=== PATIENT | female | born 1945 | race Caucasian/White ===

== ENCOUNTER 2017-10-23 21:11 | Inpatient (IN) | payer MEDICARE, MEDICAID ==
--- NOTE | 2017-10-23 21:51 | ED Physician Chart ---
ED Chief Complaint/HPI - Patient Information Date Seen:: 10/23/17 Time Seen:: 21:30 Chief Complaint:: anxiety History of Present Illness:: The patient was sent here from her senior living facility for increased anxiety. She apparently has a fear of dying as she repeatedly said she did not want to . Allergies:: Allergies Allergy/AdvReac Type Severity Reaction Status Date / Time amitriptyline Allergy Verified 10/23/17 21:45 Historian:: Patient, EMS Review:: Transfer documents Reviewed ED Review of Systems - Review of Systems General/Constitutional: No fever, No chills Skin: No skin lesions Head: No headache Eyes: No loss of vision ENT: No earache Neck: No neck pain, No swelling Cardio Vascular: No chest pain Pulmonary: No SOB GI: No nausea, No vomiting G/U: No dysuria Musculoskeletal: No bone or joint pain Endocrine: No polyuria Psychiatric: Prior psych history Hematopoietic: No bruising Allergic/Immuno: No urticaria Neurological: No syncope ED Past Medical History - Past Medical History Past Medical History: HTN, Other (anxiety; bipolar; schizophrenia; psychosis) Family History: Other Social History: Non Smoker (unavailable), No Alcohol Surgical History: None Medication: Reviewed Family Medical History - Family Member Mother History Unknown: Yes ED Physical Exam - Physical Examination Other Gen/Cons comments:: Mildly chronically ill-appearing; patient states they use 1981 Head: Atraumatic Eyes: Lids, conjuctiva normal, PERRL Skin: Nl inspection ENMT: External ears, nose nl, Nasal exam nl Other ENMT comments:: Poor dental hygiene with some lower teeth present and upper teeth are absent ED Labs/Radiology/EKG Results - Lab Results Comments:: Laboratory Results - last 24 hr 10/23/17 22:00 WBC 10.3 RBC 3.99 Hgb 11.7 L Hct 34.5 L D MCV 86.6 MCH 29.3 MCHC Differential 33.8 RDW 13.0 Plt Count 178 MPV 6.7 Neutrophils % 68.2 Lymphocytes % 24.9 Monocytes % 6.0 Eosinophils % 0.8 Basophils % 0.1 Laboratory Results - last 24 hr 10/23/17 10/23/17 10/23/17 21:55 22:00 22:00 WBC 10.3 RBC 3.99 Hgb 11.7 L Hct 34.5 L D MCV 86.6 MCH 29.3 MCHC Differential 33.8 RDW 13.0 Plt Count 178 MPV 6.7 Neutrophils % 68.2 Lymphocytes % 24.9 Monocytes % 6.0 Eosinophils % 0.8 Basophils % 0.1 Sodium 137 Potassium 4.0 Chloride 102 Carbon Dioxide 27.2 Anion Gap 11.8 BUN 26 H Creatinine 1.5 H Est GFR ( Amer) 44.2 Est GFR (Non-Af Amer) 36.5 BUN/Creatinine Ratio 17.3 Glucose 102 Calcium 9.6 Total Bilirubin 0.4 AST 20 ALT 14 Alkaline Phosphatase 57 Total Protein 6.7 Albumin 4.1 Globulin 2.6 Albumin/Globulin Ratio 1.6 Triglycerides 154 H Cholesterol 217 H LDL Cholesterol Direct 108 HDL Cholesterol 87 Urine Source CLEAN C Urine Color YELLOW Urine Clarity HAZY Urine pH 7.0 Ur Specific [place] <= 1.005 Urine Protein NEGATIVE Urine Glucose (UA) NEGATIVE Urine Ketones NEGATIVE Urine Blood SMALL H Urine Nitrate NEGATIVE Urine Bilirubin NEGATIVE Urine Urobilinogen 0.2 Ur Leukocyte Esterase SMALL H Urine RBC 0-2 Urine WBC 6-10 H Ur Epithelial Cells OCCASIONAL Urine Bacteria FEW - EKG Interpretations Rate & Rhythm: normal sinus rhythm with a rate of 73 Prather: normal Comments:: Low voltage in the extremity leads ED Septic Shock - . Is Septic Shock (SBP<90, OR Lactate>4 mmol\L) present?: No ED Reassessment (Disposition) - Diagnosis Diagnosis:: Anxiety; depression; bipolar disorder; schizophrenia - Patient Disposition Admitted to:: [facility] Admitting Medical Physician:: Erickson Huerta Admitting Psych Physician:: Serge Lucero
[2017-10-23 22:06] LABS: HEMATOCRIT 34.5 % (41.0-60); HEMOGLOBIN 11.7 gm/dL (12-16); MEAN CELL VOLUME 86.6 fl (81-100); MEAN CORPUSCULAR HEMOGLOBIN 29.3 pg (27.0-31.0); MEAN CORPUSCULAR HGB CONC 33.8 pg (28.0-36.0); MEAN PLATELET VOLUME 6.7 fl; PLATELET COUNT 178 Th/cmm (150-400); RED BLOOD COUNT 3.99 Mil/cmm (3.80-5.20); WHITE BLOOD COUNT 10.3 Th/cmm (4.8-10.8)
[2017-10-23 22:16] LABS: % BASOPHILS 0.1 % (0.0-2.0); % EOSINOPHILS 0.8 % (0.0-5.0); % LYMPHOCYTES 24.9 % (20.0-50.0); % NEUTROPHILS 68.2 % (40.0-80.0); LYMPHOCYTE ABSOLUTE 1.3 Th/cmm (1.5-3.0); MONOCYTE ABSOLUTE 0.3 Th/cmm (0.3-1.0); NEUTROPHILE ABSOLUTE 3.7 Th/cmm (1.8-8.0)
[2017-10-23 22:16] LABS: URINE MICROSCOPIC INDICATED? YES; URINE SOURCE CLEAN C
[2017-10-23 22:21] LABS: URINE BILIRUBIN NEGATIVE (NEGATIVE); URINE BLOOD SMALL (NEGATIVE); URINE GLUCOSE (UA) NEGATIVE (NEGATIVE); URINE KETONE NEGATIVE (NEGATIVE); URINE LEUKOCYTE ESTERASE SMALL (NEGATIVE); URINE NITRATE NEGATIVE (NEGATIVE); URINE PROTEIN NEGATIVE (NEGATIVE); URINE UROBILINOGEN 0.2 E.U./dL (0.2 - 1.0)
[2017-10-23 22:23] LABS: ALB/GLOB RATIO 1.6 (1.0-1.8); ALBUMIN 4.1 gm/dL (3.7-5.3); ANION GAP 11.8 (7.0-16.0); BILIRUBIN,TOTAL 0.4 mg/dL (0.3-1.0); CALCIUM SERUM 9.6 mg/dL (8.6-10.3); CARBON DIOXIDE 27.2 mEq/L (21.0-31.0); CREATININE - SERUM 1.5 mg/dL (0.6-1.2); GFR AFRICAN-AMERICAN 44.2 ml/min (>90); GFR NON AFRICAN-AMERICAN 36.5 ml/min; TOTAL PROTEIN,SERUM 6.7 gm/dL (6.0-8.3)
[2017-10-23 22:27] LABS: URINE CLARITY HAZY (CLEAR); URINE COLOR YELLOW
[2017-10-23 22:29] LABS: URINE BACTERIA FEW /hpf (NONE SEEN); URINE EPITHELIAL CELLS OCCASIONAL /lpf (FEW); URINE RBC 0-2 /hpf (0-5)
[2017-10-24 01:01] VITALS: BP 146/89
[2017-10-24] MEDS ORDERED: Maalox 30 mL Cup PO PRN (01:10)
[2017-10-24] MEDS ORDERED: Magnesium Hydroxide (MOM) 30 mL UDC PO PRN (01:15)
[2017-10-24] MEDS ORDERED: Fleet Enema 135 mL RC PRN (01:15)
[2017-10-24] MEDS: Pantoprazole 40 mg EC Tab PO SCH (08:50)
[2017-10-24] MEDS: Multivitamin Tab PO SCH (08:50)
--- NOTE | 2017-10-25 02:21 | Psychosocial Evaluation ---
DATE OF SERVICE: 10/24/2017 IDENTIFYING DATA: The patient is a 72-year-old woman, resident of [facility] in [place]. Information obtained by directly interviewing the patient as well as reviewing the admission papers and they are reliable. JUSTIFICATION FOR HOSPITALIZATION: The patient is admitted here on a voluntary basis in view of her acute agitation and disruptive behavior. CHIEF COMPLAINT: "Get me out of here, I need to go, call the ambulance." HISTORY OF PRESENT ILLNESS: This is the second psychiatric hospitalization for this patient who has been diagnosed to have schizoaffective disorder and had been treated with Seroquel, Depakote, and Zoloft. The patient was hospitalized here in 2014. The patient has been admitted over here for disruptive behavior. The patient has been constantly agitated and has been constantly mentioning that we need to call the ambulance and for her to get out of here. The patient has been not making much sense. Coping skills are noted to be very poor. The patient has been acutely anxious and agitated. PAST PSYCHIATRIC HISTORY: Please refer the above. MEDICAL HISTORY: Requested and done by Dr. Huerta. SUBSTANCE ABUSE HISTORY: None. PHYSICAL OR SEXUAL ABUSE HISTORY: None. LEGAL PROBLEMS: None at this time. STRENGTH AND ASSETS: The patient is motivated. MENTAL STATUS EXAMINATION: The patient is a 72-year-old, looking older than her stated age, thin built, superficially cooperative. Eye contact is poor. Mood is noted to be irritable. Affect is constricted. The patient is very agitated at this time. The patient has been trying to get into the GD chair. The patient is stating that we need to call the ambulance for her to get out of here. The patient is not aware of the facility and the patient is, however, alert and awake. The patient's coping skills at this time are noted to be extremely poor. The patient is impulsive behavior is a clear danger to self because of her agitation even being in the GD chair. DIAGNOSTIC IMPRESSION: AXIS I: 1a. Schizoaffective disorder by history. 1b. Dementia and behavioral change, secondary trait. AXIS II: None. AXIS III: As per Dr. Huerta. IMMEDIATE TREATMENT PLAN: The patient is going to be continued on the Seroquel and Depakote, and the dose of the Zoloft is going to be gradually titrated down. ESTIMATED LENGTH OF STAY: 5-7 days. DISCHARGE CRITERIA: When she no longer a threat to self or others and be able to cope up with the stress. [facility]# [id number]
[2017-10-25] MEDS: Multivitamin Tab PO SCH (08:09)
[2017-10-25] MEDS: Pantoprazole 40 mg EC Tab PO SCH (08:10)
--- NOTE | 2017-10-25 13:37 | Progress Notes ---
DATE: 10/25/2017 SUBJECTIVE: Staff was spoken to. The patient is interviewed. Mood is noted to be irritable. Affect is constricted. Insight and judgment at this time are noted to be still impaired. Impulse control seems to be poor. Coping skills are also noted to be poor. The patient has been having difficult time to cope with the stress. The patient has been screaming and yelling and has been pounding on the table. The patient is currently on Depakote and Seroquel and has been able to tolerate the medication. ASSESSMENT: The patient is still impulsive and not able to contract for safety. PLAN: To continue the patient with supportive therapy, encouraged the patient to verbalize the concerns rather than to act out. Please note that the patient is not ready to be discharged to a lower level of care yet. JOB# [id number]
[2017-10-26] MEDS: Multivitamin Tab PO SCH (09:16)
[2017-10-26] MEDS: Pantoprazole 40 mg EC Tab PO SCH (09:17)
[2017-10-26] MEDS ORDERED: Probiotic Screen MC PRN (16:16)
--- NOTE | 2017-10-26 19:25 | Progress Notes ---
DATE: 10/26/2017 SUBJECTIVE: Staff was spoken to. The patient is interviewed. The patient is severely agitated and has been rocking in the GD chair. The patient wants to get out of it. The patient could not be redirected. The patient has no insight into her illness. Coping skills are noted to be extremely poor. ASSESSMENT: The patient is still grossly psychotic. PLAN: To continue the patient with the supportive therapy, encouraged the patient to verbalize the concerns rather than to act out. JOB# [id number]
[2017-10-27] MEDS: Multivitamin Tab PO SCH (10:01)
[2017-10-27] MEDS: Pantoprazole 40 mg EC Tab PO SCH (10:01)
--- NOTE | 2017-10-27 18:47 | Progress Notes ---
DATE: 10/27/2017 SUBJECTIVE: Staff was spoken to. The patient is interviewed, noted to be irritable. Affect is constricted. The patient is very agitated and has been rocking the wheelchair. The patient has no insight into her illness. Coping skills are noted to be extremely poor. The patient at this time has been having difficult time to cope with the stress. The patient is currently on Seroquel, which is being given at 25 mg in the morning and then 50 mg at bedtime. The patient has been still getting impulsive and the patient has no insight into her illness. The patient is still very paranoid. In view of that one, I have decided to increase the dose of the Seroquel to 25 mg twice a day and encouraged the patient to verbalize the concerns rather than to act out. The patient has been having difficult time and is constantly mentioning that she is anxious and need to call the ambulance and she needs to go to the hospital. The patient has no clue that she is in the hospital. ASSESSMENT: The patient is still impulsive. PLAN: To continue the patient with the Depakote, which is being given at the 250 mg 3 times a day and the Seroquel is going to be changed to 25 mg twice a day and the patient is going to be followed up with the supportive therapy. JOB# [id number]
--- NOTE | 2017-10-28 06:50 | Consultation ---
DATE OF CONSULTATION: INTERNAL MEDICINE CONSULT REFERRING PHYSICIAN: Dr. Lucero. REASON FOR CONSULT: Medical management, history of essential hypertension. HISTORY OF PRESENT ILLNESS: The patient is a 72-year-old female who resides at [facility] with past medical history significant for essential hypertension, generalized anxiety disorder, schizophrenia, bipolar disease, depression, unsteady gait and mobility, generalized muscle weakness, who has been admitted to [facility] for increased anxiety and psych exacerbation. The patient is currently tied to a chair and is very tremulous, not able to provide me with any significant history. PAST MEDICAL HISTORY: As noted above. PAST SURGERY: Unknown. FAMILY HISTORY: Likely noncontributory to this admission. SOCIAL HISTORY: She denies any tobacco, ETOH or illicit drug usage. She lives at a snf facility. ALLERGIES: AMITRIPTYLINE. OUTPATIENT MEDICATIONS: Tylenol 325 q.4 hours p.r.n. for fever and pain, Maalox q.6 hours p.r.n., amlodipine 5 every day, bisacodyl 10 mg per rectum every day p.r.n. for constipation, Depakote 250 t.i.d., Colace 100 mg every day, Fleet enema p.r.n. per rectum q.48 hours p.r.n. for severe constipation, lorazepam 0.5 q.6 hours p.r.n. for anxiety, milk of magnesia 30 mL, multivitamins daily, Zofran 4 mg q.6 hours p.r.n. for nausea and vomiting, Protonix 40 mg every day, Seroquel 50 mg at bedtime, Zoloft 100 mg every day, tramadol 50 mg q.4 hours p.r.n. for pain. REVIEW OF SYSTEMS: A good review of systems was not able to be done given patient's condition. PHYSICAL EXAMINATION: VITAL SIGNS: Temperature 97.8, pulse 95, BP 146/89, respirations 18-20, satting 97% on room air. GENERAL: She is a well-developed, thin female who was awake, but in noticeable anxiety. HEAD AND NECK: Normocephalic, atraumatic. Pupils are reactive to light. Oropharynx, moist and clear. CARDIAC: Regular rate with distant sounds. LUNGS: Clear to auscultation bilaterally. ABDOMEN: Soft, supple, nontender, normoactive bowel sounds. EXTREMITIES: Lower extremities, no pedal edema. NEUROLOGIC: Grossly intact, nonfocal, although full exam could not be done given patient's current condition. LABORATORY DATA: White count 10.3, H and H 11/34, platelet count 178. BUN 26, creatinine 1.5, otherwise Chem-20 was within normal limits. Triglycerides 154. Cholesterol 217, LDL 108, HDL 87. UA shows small blood, small leukocyte esterase, 6-10 wbc's. RPR nonreactive. ASSESSMENT: 1. Acute psych decompensation/acute psychosis. 2. Essential hypertension-stable. 3. Mild dehydration/azotemia. 4. Urinary tract infection. 5. Dyslipidemia. 6. History of schizophrenia. 7. History of bipolar disease. 8. History of depression. PLAN: The patient has been admitted to [facility] for further management and care. The patient will be kept on amlodipine at 5 mg every day, will be given also clonidine p.r.n. for SBP greater than 160. We will ask nursing staff to encourage increase p.o. fluid intake. I will place the patient on Cipro 250 b.i.d. for 7 days. JOB# [id number]
[2017-10-28] MEDS: Pantoprazole 40 mg EC Tab PO SCH (10:53)
[2017-10-28] MEDS: Multivitamin Tab PO SCH (10:53)
--- NOTE | 2017-10-28 16:06 | Progress Notes ---
DATE: 10/28/2017 PSYCHIATRIC PROGRESS NOTE SUBJECTIVE: Staff was spoken to. The patient is interviewed. Mood is irritable. Affect is constricted. The patient is still very agitated and could not be contained. The patient is stating that she is having too much of anxiety and needs to call the ambulance to get out of here. The patient has no insight into her illness. ASSESSMENT: The patient is still psychotic. PLAN: To continue the patient with Seroquel and follow her up with the supportive therapy. JOB# [id number]
[2017-10-29] MEDS: Multivitamin Tab PO SCH (09:22)
[2017-10-29] MEDS: Pantoprazole 40 mg EC Tab PO SCH (09:22)
--- NOTE | 2017-10-29 14:09 | Progress Notes ---
DATE: 10/29/2017 SUBJECTIVE: Staff was spoken to. The patient is interviewed. Mood is noted to be depressed. Affect is constricted. Coping skills are noted to be very poor. Sleep and appetite are also noted to be very poor. The patient has been having difficult time to cope with the stress. The patient is constantly mentioning that she is anxious and need more medications. ASSESSMENT: The patient is still depressed and impulsive. PLAN: To continue the patient with the supportive therapy, encouraged the patient to verbalize the concerns. The patient is not ready to be discharged to a lower level of care yet. [facility]# [id number]
[2017-10-30] MEDS: Pantoprazole 40 mg EC Tab PO SCH (09:16)
[2017-10-30] MEDS: Multivitamin Tab PO SCH (09:17)
--- NOTE | 2017-10-30 09:53 | Progress Notes ---
DATE: 10/30/2017 SUBJECTIVE: Staff was spoken to. The patient is interviewed. Mood is noted to be irritable. Affect is constricted. The patient is still isolative and withdrawn. Insight and judgment are noted to be still impaired. Impulse control is poor. The patient has paranoid delusions. The patient is still focused with her anxiety and is stating that she needs to be given more and more medication. The patient has no insight into her illness. The patient is currently on 250 mg 3 times a day with Depakote and 25 mg twice a day of the Seroquel. The patient has been able to tolerate the medication. ASSESSMENT: The patient is still impulsive and psychotic. PLAN: To continue the patient with the supportive therapy and followup. [facility]# [id number]
[2017-10-31] MEDS: Pantoprazole 40 mg EC Tab PO SCH (09:27)
[2017-10-31] MEDS: Multivitamin Tab PO SCH (10:58)
--- NOTE | 2017-10-31 21:21 | Progress Notes ---
DATE: 10/31/2017 SUBJECTIVE: Staff was spoken to. The patient is interviewed. Mood is noted to be irritable. Affect is constricted. The patient has been constantly asking that I need to call the ambulance, so that she can get out of here. The patient has no insight into her illness. Coping skills are noted to be very poor. The patient has been very fragile. The patient has been on 25 mg twice a day of the Seroquel and has been able to tolerate the medication. The patient is also getting the 250 mg of the Depakote. ASSESSMENT: The patient is still impulsive and anxious. PLAN: To continue the patient with the supportive therapy and followup. JOB# [id number]
[2017-11-01 07:04] LABS: ANION GAP 13.9 (7.0-16.0); CALCIUM SERUM 9.3 mg/dL (8.6-10.3); CARBON DIOXIDE 26.8 mEq/L (21.0-31.0); CREATININE - SERUM 1.3 mg/dL (0.6-1.2); GFR AFRICAN-AMERICAN 52.1 ml/min (>90); MAGNESIUM 2.5 mg/dL (1.9-2.7); POTASSIUM SERUM 3.7 mEq/L (3.5-5.1)
[2017-11-01] MEDS: Pantoprazole 40 mg EC Tab PO SCH (09:15)
[2017-11-01] MEDS: Multivitamin Tab PO SCH (09:15)
--- NOTE | 2017-11-01 15:44 | Progress Notes ---
DATE: 11/01/2017 SUBJECTIVE: Staff was spoken to. The patient is interviewed. Mood is noted to be irritable. Affect is constricted. The patient has constantly been mentioning about anxious and the patient's coping skills are noted to be very poor. Insight and judgment also noted to be very poor. The patient has to be given a dose of Ativan to calm her down. ASSESSMENT: The patient is still anxious and paranoid. PLAN: To continue the patient with the current medications and followup. JOB# [id number]
[2017-11-02] MEDS: Pantoprazole 40 mg EC Tab PO SCH (10:03)
[2017-11-02] MEDS: Multivitamin Tab PO SCH (10:03)
--- NOTE | 2017-11-02 22:47 | Progress Notes ---
DATE: 11/02/2017 SUBJECTIVE: Staff was spoken to. The patient is interviewed. Mood is noted to be irritable. Affect is constricted. Insight and judgment noted to be still impaired. Impulse control is noted to be poor. The patient's blood work has been reviewed. BUN and creatinine are noted to be very high and hence the primary care physician is going to be informed about it and the patient is being closely monitored at this time. ASSESSMENT: The patient is still psychotic and impulsive. PLAN: To continue the patient with Seroquel 25 mg twice a day and continue the valproic acid and follow the patient with the supportive therapy. Please note that the patient's major concern at this time is anxiety. JOB# [id number]
[2017-11-03] MEDS: Pantoprazole 40 mg EC Tab PO SCH (08:46)
[2017-11-03] MEDS: Multivitamin Tab PO SCH (11:00)
--- NOTE | 2017-11-03 14:01 | Progress Notes ---
DATE: 11/03/2017 SUBJECTIVE: Staff was spoken to. The patient is interviewed. Mood is irritable. Affect is constricted. Coping skills are noted to be still poor. Sleep and appetite are also noted to be very limited. The patient has been having difficult time to cope with the stress. No side effects to the medications are noted. The patient is fixated with anxiety. The patient is able to tolerate the medications today. No side effects to medications are noted. ASSESSMENT: The patient is still anxious and paranoid. PLAN: To continue the patient with the current medications and followup. JOB# [id number]
[2017-11-04] MEDS: Pantoprazole 40 mg EC Tab PO SCH (09:53)
[2017-11-04] MEDS: Multivitamin Tab PO SCH (09:53)
--- NOTE | 2017-11-04 13:29 | Progress Notes ---
DATE: 11/04/2017 SUBJECTIVE: Staff was spoken to. The patient is interviewed. Mood is noted to be irritable. Affect is constricted. Insight and judgment are noted to be still impaired. Impulse control seems to be poor. Coping skills are also noted to be very poor. The patient is currently on 25 mg twice a day of Seroquel, but her main concern at this time seems to be anxiety. ASSESSMENT: The patient is still impulsive. PLAN: To continue the patient with the supportive therapy, encouraged the patient to verbalize the concerns rather than to act out. JOB# [id number]
[2017-11-05] MEDS: Multivitamin Tab PO SCH (08:17)
[2017-11-05] MEDS: Pantoprazole 40 mg EC Tab PO SCH (08:17)
--- NOTE | 2017-11-06 02:03 | Progress Notes ---
DATE: 11/05/2017 PSYCHIATRIC PROGRESS NOTE TIME: The patient was seen at 12:00 noon. SUBJECTIVE: Staff was spoken to. The patient is interviewed. Mood is noted to be anxious. Affect is appropriate. Not suicidal or homicidal today. Insight and judgment are noted to be fair, but the patient has been preoccupied with her anxiety. No side effects to the medications are noted. Coping skills are noted to be improving. ASSESSMENT: The patient is stabilizing. PLAN: To discharge the patient today for followup on outpatient basis. JOB# [id number]
== END 2017-11-05 14:30 | disposition home or self-care (01) | DRG 885 ==
LOC: ER 21:11 → GERO 23:18 → UNDOADMIN 23:18 → GERO 10-24 00:21
PROVIDERS: ADMIT Psychiatry & Neurology Psychiatry; ATTEND Psychiatry & Neurology Psychiatry
DX: F25.9 Schizoaffective disorder, unspecified (principal); F03.91 Unspecified dementia, unspecified severity, with behavioral disturbance; N39.0 Urinary tract infection, site not specified; F23 Brief psychotic disorder; I10 Essential (primary) hypertension; E86.0 Dehydration; E78.5 Hyperlipidemia, unspecified; F32.9 Major depressive disorder, single episode, unspecified; F41.1 Generalized anxiety disorder; Z88.8 Allergy status to other drugs, medicaments and biological substances
CPT/HCPCS: 36415-UA; 80048-TC; 80053-TC; 80061-TC; 80164-TC; 81001-TC; 83735-TC; 84443-TC; 85025-TC; 86592-TC; 93005; J2060; Q0162; X3401; Z7610